=== PATIENT | female | born 1990 | race African-American/Black ===

== ENCOUNTER 2018-05-25 00:04 | Emergency (ER) | payer SELFPAY ==
[~2018-05-25] VITALS: Ht 157.5 cm; Wt 70.3 kg
[2018-05-25 00:07] VITALS: BP 130/72
--- NOTE | 2018-05-25 00:10 | NUR ---
PT BIBFRIEND COMPLAINING OF "ANXIETY" SECONDARY TO SMOKING MARIJUANA X 2 HOURS. PT AXO4. RESPIRATIONS EVEN AND UNLABORED. PT PUT ON THE RESEARCH COMPUTING SPECIALIST AND PULSE OX.
[2018-05-25] MEDS ORDERED: LORAZEPAM 1 MG TABLET PO ONE (00:30)
[2018-05-25] MEDS ORDERED: IV NS 0.9% 1,000 ML BAG IV ONE (00:30)
--- NOTE | 2018-05-25 00:44 | NUR ---
Patient does not wish to proceed with medical care recommended by Dr. KIM . Patient given information related to possible complications, up to and including , which could occur as a result of leaving the hospital at this time. Patient verbalizes understanding of risks involved due to leaving against medical advice. Patient has signed AMA form.
== END 2018-05-25 00:45 | disposition left against medical advice (07) ==
LOC: ER 00:10
DX: F41.9 Anxiety disorder, unspecified (principal); F12.10 Cannabis abuse, uncomplicated